=== PATIENT | female | born 1990 | race Caucasian/White ===

== ENCOUNTER → 2019-11-24 13:51 | Outpatient (CLI) | payer BC, SELFPAY ==
--- NOTE | ~2019-11-24 | US_ITS ---
EXAMINATION: US pelvic complete w TV DATE: 11/24/2019 14:17 INDICATION: Pelvic and perineal pain TECHNIQUE: Multiple transabdominal and endovaginal sonographic images of the pelvis were obtained. COMPARISON: None. FINDINGS: The retroverted uterus measures 6.5 x 3.0 x 4.6 cm. The endometrial complex measures 7 mm. The right ovary measures 3.5 x 1.9 x 2.6 cm. The left ovary measures 3.6 x 2.4 x 3.6 cm. There is nor mal vascular flow in the ovaries. There is no free fluid in the pelvis. IMPRESSION: 1. No sonographic correlate for the patient's symptoms. Reviewed, dictated and finalized at location A.
== END ==
PROVIDERS: PCP Family Medicine; Visit Provider Obstetrics & Gynecology
DX: R10.2 Pelvic and perineal pain (principal)
CPT/HCPCS: 76830; 76856

== ENCOUNTER → 2022-03-23 08:50 | Outpatient (CLI) | payer BC, SELFPAY ==
--- NOTE | ~2022-03-23 | US_ITS ---
EXAMINATION: US OB <=14 wk fetus w TV DATE: 03/23/2022 09:19 INDICATION: First trimester dating TECHNIQUE: Real-time pelvic transabdominal and transvaginal ultrasound was performed. COMPARISON: None. FINDINGS: The uterus measures 8.5 x 5.0 x 6.0 cm. There is an intrauterine gestational sac. A yolk s ac is identified. heart motion is identified measuring 138 beats per minute (bpm) by M-mode Dop pler. The crown rump length measures 9 mm, which correlates with an estimated gestational age o f 6 weeks and 6 day(s) (+/-) 4 day(s). The right ovary measures 3.0 x 2.2 x 2.6 cm. The left ovary measures 3.8 x 2.1 x 2.1 cm. There is nor mal vascular flow in the ovaries. There is no free fluid in the pelvis. IMPRESSION: 1. Live intrauterine with an estimated gestational age of 6 weeks and 6 day(s) (+/-) 4 day( s) and an estimated delivery date of 11/10/2022. Reviewed, dictated and finalized at location B. IMPRESSION: 1. Live intrauterine with an estimated gestational age of 6 weeks and 6 day(s) (+/-) 4 day(s) and an estimated delivery date of 11/10/2022.
== END ==
PROVIDERS: PCP Obstetrics & Gynecology; Visit Provider Obstetrics & Gynecology
DX: O36.80X0 Pregnancy with inconclusive fetal viability, not applicable or unspecified (principal); Z3A.01 Less than 8 weeks gestation of pregnancy
CPT/HCPCS: 76801; 76817

== ENCOUNTER 2022-04-17 10:59 | Outpatient (CLI) | payer BC, SELFPAY ==
[2022-04-17 11:36] LABS: Basophils Percent Auto 0.5 % (0.2-1.2); Eosinophils Absolute Auto 0.1 K/mm3 (0-0.3); Eosinophils Percent Auto 0.9 % (0-4.4); Hematocrit 37.2 % (37.0-47.0); Hemoglobin 12.8 g/dL (12.0-15.0); Immature Granulocyte Absolute 0.05 K/mm3 (0.00-0.031); Immature Granulocyte Percent A 0.6 % (0-0.5); Lymphocytes Absolute Auto 1.44 K/mm3 (0.9-3.2); Lymphocytes Percent Auto 18.2 % (18.3-44.2); Mean Corpuscular HGB Conc 34.4 g/dl (32-36); Mean Corpuscular Hemoglobin 31.2 pg (26-34); Mean Corpuscular Volume 90.7 fl (80-100); Mean Platelet Volume 10.7 fl (7.4-10.4); Monocytes Absolute Auto 0.6 K/mm3 (0.1-0.6); Neutrophils Absolute Auto 5.7 K/mm3 (1.3-6.7); Neutrophils Percent Auto 71.8 % (45.5-73.1); Platelet Count Result 186 k/mm3 (150-375); Red Cell Distribution Width 12.1 % (11.5-14.5); White Blood Count 7.9 K/mm3 (4.5-10.0)
[2022-04-17 11:55] LABS: Appearance Urine Clear (Clear); Bilirubin Urine Negative (Negative); Blood Urine Negative (Negative); Color Urine Yellow (Yellow); Glucose Urine UA Negative (Negative); Ketones Urine Negative (Negative); Leukocyte Esterase Ur 2+ LEU/UL (NEGATIVE); Nitrate Urine Negative (Negative); Protein Urine Negative (Negative); Urobilinogen Urine 0.2 mg/dL (<2.0)
[2022-04-17 12:20] LABS: Bacteria Urine Trace /hpf; Mucus Urine Rare /lpf; RBC Urine 0-2 /hpf (0-2); Squamous Epithelial Cell Urine Few /hpf (Few)
[2022-04-17 12:21] LABS: Add Urine Microscopic? YES
[2022-04-17 13:08] LABS: Hepatitis B Surface Antigen Negative (Negative); Rubella IgG Antibody 16.7 IU/ML
[2022-04-17 13:20] LABS: Hepatitis C Virus Antibody Negative (Negative)
[2022-04-18 15:31] LABS: Rapid Plasma Reagin Non-Reactive (NonReactive)
[2022-04-19 19:07] LABS: Varicella IgG Antibody <135.00 Index (>=165.00)
[2022-04-20 10:35] LABS: Hematocrit 38.1 % (35.0-45.0); Hemoglobin 12.9 g/dL (11.7-15.5); MCH 31.1 pg (27.0-33.0); MCV 91.8 fL (80.0-100.0); RDW 12.3 % (11.0-15.0); Red Blood Cell Count 4.15 Mill/uL (3.80-5.10)
== END 2022-04-17 11:00 | disposition home or self-care (01) ==
PROVIDERS: PCP Obstetrics & Gynecology; Visit Provider Obstetrics & Gynecology
DX: Z34.90 Encounter for supervision of normal pregnancy, unspecified, unspecified trimester (principal); Z3A.00 Weeks of gestation of pregnancy not specified
CPT/HCPCS: 36415; 81001; 83021; 84443; 85025; 86592; 86762; 86787; 86803; 86850; 86900; 86901; 87086; 87340

== ENCOUNTER → 2023-02-15 08:09 | Outpatient (CLI) | payer BC, SELFPAY ==
--- NOTE | ~2023-02-15 | US_ITS ---
EXAMINATION: US thyroid DATE: 02/15/2023 08:37 INDICATION: Cervical lymphadenopathy. TECHNIQUE: Multiple ultrasound images of the thyroid were obtained. COMPARISON: None. FINDINGS: The right thyroid lobe measures 4.5 x 1.6 x 1.7 cm. The left thyroid lobe measures 4.5 x 1.4 x 1.8 c m. There is normal echotexture and echogenicity throughout the thyroid gland. No discrete nodules id entified. Normal vascular flow is present. There are normal lymph nodes in the neck bilaterally. IMPRESSION: 1. Normal thyroid. 2. No lymphadenopathy. Reviewed, dictated and finalized at location A.
== END ==
PROVIDERS: PCP Family Medicine
DX: R59.0 Localized enlarged lymph nodes (principal)
CPT/HCPCS: 76536

== ENCOUNTER 2024-01-16 14:04 | Outpatient (CLI) | payer BC, SELFPAY ==
[2024-01-16 18:19] LABS: Vitamin D 25 Hydroxy 62.1 ng/mL
== END 2024-01-16 14:05 | disposition home or self-care (01) ==
LOC: ANHLAB 14:06
PROVIDERS: PCP Family Medicine; Visit Provider Nurse Practitioner Obstetrics & Gynecology
DX: R53.83 Other fatigue (principal); L65.9 Nonscarring hair loss, unspecified
CPT/HCPCS: 36415; 82306; 84443